=== PATIENT | female | born 1950 | race Caucasian/White ===

== ENCOUNTER 2019-05-28 17:14 | Emergency (ER) | payer MEDICARE, SELFPAY ==
--- NOTE | ~2019-05-28 | XR_ITS ---
EXAMINATION: XR hand RT 2V DATE: 05/28/2019 17:42 INDICATION: Right hand pain. Fall. TECHNIQUE: 3 views of right hand were obtained. COMPARISON: None. FINDINGS: Bone alignment is normal. No fracture. 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 IMPRESSION: 1. No fracture. Reviewed, dictated and finalized at location A. IMPRESSION: 1. No fracture.
--- NOTE | ~2019-05-28 | XR_ITS ---
EXAMINATION: XR humerus RT DATE: 05/28/2019 17:43 INDICATION: Right upper arm pain. Fall. TECHNIQUE: 2 views of right humerus were obtained. COMPARISON: None. FINDINGS: Bone alignment is normal. No fracture. Joint spaces are well maintained. There is a large e lbow joint effusion. IMPRESSION: 1. Large elbow joint effusion. No fracture identified. Reviewed, dictated and finalized at location A.
--- NOTE | ~2019-05-28 | XR_ITS ---
EXAMINATION: XR forearm RT 2V DATE: 05/28/2019 17:42 INDICATION: Right forearm pain. Fall. TECHNIQUE: 2 views of right forearm were obtained. COMPARISON: None. FINDINGS: Bone alignment is normal. No fracture identified. Joint spaces are normal. There is a large elbow joint effusion. IMPRESSION: 1. Large elbow joint effusion. No fracture identified. Reviewed, dictated and finalized at location A.
[2019-05-28 17:24] VITALS: BP 158/81; PULSE 63; RESP 20; TEMP 36.6
--- NOTE | 2019-05-28 17:34 | ED.UPPEXIN ---
HPI - Extremity Injury (Upper) General Chief Complaint: Extremity Injury, Upper Stated Complaint: R ARM INJURY Time Seen by Provider: 05/28/19 17:34 Source: patient Mode of arrival: ambulatory Limitations: no limitations History of Present Illness HPI narrative: Alejandra Stiles is a 68 yo female with a PMH of HTN and high cholesterol, who comes to express care after fall in basement with outstretched R hand. Fell onto R side. Complaining of R elbow, forearm, hand pain, can move arm but is painful. Fall occurred earlier today Related Data Home Medications Medication Instructions Recorded Confirmed atenolol 05/28/19 lovastatin mg 05/28/19 quinapril mg 05/28/19 Allergies Allergy/AdvReac Type Severity Reaction Status Date / Time diclofenac Allergy Intermediate Rash Verified 05/28/19 17:22 Review of Systems Review of Systems: Narrative: CONSTITUTIONAL: Denies fever, chills, sweats. EYES: Denies visual changes, redness, discharge. ENT: Denies rhinorrhea, congestion, sore throat, otalgia. CARDIOVASCULAR: Denies chest pain, palpitations, edema. RESPIRATORY: Denies dyspnea, wheezing, cough GASTROINTESTINAL: Denies abdominal pain, nausea, vomiting, diarrhea. GENITOURINARY: Denies dysuria, hematuria, abnormal discharge SKIN: Denies rash or itching. NEUROLOGIC: Denies numbness, or focal weakness. PSYCHIATRIC: Denies anxiety or depression. R arm pain after fall PMFSH Family History Family History (Updated 05/28/19 @ 18:25 by Ashlie Foster CNP) Other High cholesterol Hypertension Social History Social History (Updated 05/28/19 @ 18:24 by Ashlie Foster CNP) Smoking status: Never smoker Alcohol intake: current Comments At time of signature, I agree with nursing past medical, surgical, social and family history. There is no relevant family history pertinent to the presenting complaint. Exam Narrative: Exam Narrative: GENERAL: This is a well-nourished, well-developed patient, in no apparent distress. HEAD: normocephalic, atraumatic. EYES: PERRL. Sclera clear/white. Vision is grossly intact. EARS: External ears normal, auditory canals clear and without drainage, TMs normal without perforation. Hearing grossly intact. NOSE: External nose normal with no obvious nasal discharge, nares without redness, no rhinorrhea. THROAT: Mucous membranes moist, posterior pharynx clear. NECK: Neck supple, non-tender without lymphadenopathy, masses or thyromegaly. CARDIOVASCULAR: Regular rate and rhythm without murmurs, gallops, or rubs. RESPIRATORY: Clear to auscultation. Breath sounds equal bilaterally. No wheezes, rales, or rhonchi. GASTROINTESTINAL: Abdomen soft, non-tender, nondistended. Bowel sounds are active. No hepato-splenomegaly, or palpable masses. No guarding. SKIN: warm, intact with no suspicious lesions or rash, good texture and turgor. NEURO: awake, alert, and oriented to person, place and time. There were no obvious focal neurologic abnormalities. Steady gait EXTREMITIES: Normal range of motion. No edema. No calf tenderness. Negative Homans sign bilaterally. BACK: Nontender without deformity or crepitance. No flank tenderness. Course Course Emergency Course: Xray of R elbow, forearm, hand-X-ray read as negative- effusiob to R elbow- abbe wrap applied and sling applied Pain meds ordered Vital Signs Vital signs: Vital Signs Temperature 97.9 F 05/28/19 17:24 Pulse Rate 63 05/28/19 17:24 Respiratory Rate 05/28/19 17:24 Blood Pressure 158/81 H 05/28/19 17:24 Temperature 97.9 F 05/28/19 17:24 Pulse Rate 63 05/28/19 17:24 Respiratory Rate 05/28/19 17:24 Blood Pressure 158/81 H 05/28/19 17:24 MDM - Extremity Injury (Upper) Differential Diagnosis Differential diagnosis: Likely sprain and strain of wrist, fracture of wrist and other (fracture of radius) Discharge Plan Discharge Clinical Impression: Effusion of elbow joint, right Patient Disposition: Home, Jennifer
== END 2019-05-28 18:16 | disposition home or self-care (01) ==
PROVIDERS: Emergency Provider Nurse Practitioner; PCP Registered Nurse
DX: M25.421 Effusion, right elbow (principal); E78.00 Pure hypercholesterolemia, unspecified; I10 Essential (primary) hypertension
CPT/HCPCS: 73060; 73090; 73120; 99214; A4565; G0463

== ENCOUNTER → 2022-04-30 08:16 | Outpatient (CLI) | payer MEDICARE, SELFPAY ==
--- NOTE | ~2022-04-30 | CT_ITS ---
EXAMINATION: CT sinus wo con DATE: 04/30/2022 08:30 INDICATION: Chronic pansinusitis. TECHNIQUE: Computed tomography (CT) of the paranasal sinuses was performed without intravenous contra st. Iterative reconstruction technique was employed. The dose-length product was 299.47 mGy-cm. COMPARISON: None FINDINGS: There is mild mucosal thickening in left frontal sinus. There is complete opacification of left lateral recess. There is mild mucosal thickening in the ethmoid sinuses with an anterior predomi nance, left worse than right. The sphenoid sinuses are clear. There is moderate mucosal thickening in left maxillary sinus. There is thickening and sclerosis of the hernandez of left maxillary sinus. Right maxillary sinus is clear. The estimated inserted patent. There is rightward deviation of the nasal se ptum. There are periapical lucencies of a right maxillary molar. There is a small left mastoid effusi on. There are likely changes of ocular lens replacement surgeries. There is anteroposterior elongatio n of the ocular globes. IMPRESSION: 1. Chronic sinusitis. 2. Rightward deviation of the nasal septum. 3. Periapical lucencies of a right maxillary molar. Reviewed, dictated and finalized at location A. DIRECTOR
== END ==
PROVIDERS: PCP Registered Nurse; Visit Provider Otolaryngology
DX: J32.4 Chronic pansinusitis (principal); J34.2 Deviated nasal septum
CPT/HCPCS: 70486

== ENCOUNTER 2022-07-24 10:50 | Emergency (ER) | payer MEDICARE, SELFPAY ==
--- NOTE | ~2022-07-24 | CT_ITS ---
Non-contrast CT scan of the Abdomen and Pelvis Clinical indication: Right flank pain Technique: 2.5 mm axial scans were obtained through the abdomen and pelvis without intravenous or or al contrast. Dose reduction technique was used on this scan by utilizing automated exposure control a nd iterative reconstruction technique. The dose-length product (DLP) was 545.05 mGy-cm. Findings: Images through the lung bases reveal no abnormalities. There is no evidence of renal or ureteral calculi. The kidneys and the ureters are nondilated. The liver, spleen, pancreas, gallbladder, and adrenals appear normal. There are atherosclerotic calci fications of the aorta. There is no evidence of bowel obstruction. There is sigmoid diverticulosis with minimal adjacent infl ammatory stranding. Images through the pelvis were performed. There is no evidence of ascites or lymphadenopathy. Urinary bladder unremarkable. No adnexal mass evident. Impression: Probable minimal acute sigmoid diverticulitis. No abscess or free air. No renal, ureteral, or bladder stone. No hydronephrosis. Reviewed, dictated and finalized at [facility]. Impression: Probable minimal acute sigmoid diverticulitis. No abscess or free air. No renal, ureteral, or bladder stone. No hydronephrosis.
[2022-07-24 10:53] VITALS: BP 177/65; PULSE 55; RESP 16; TEMP 36.4; O2SAT 99
[2022-07-24 12:32] LABS: Appearance Urine Cloudy (Clear); Bacteria Urine None Seen /hpf; Bilirubin Urine Negative (Negative); Blood Urine Negative (Negative); Color Urine Yellow (Yellow); Glucose Urine UA Negative (Negative); Ketones Urine Negative (Negative); Leukocyte Esterase Ur Negative LEU/UL (Negative); Nitrate Urine Negative (Negative); Non Pathogenic Casts 0-2; Protein Urine Negative (Negative); Squamous Epithelial Cell Urine None seen /hpf (Few); Urobilinogen Urine 0.2 mg/dL (<2.0); WBC Urine 0-5 /hpf; pH Urine 6.5 (5.0-9.0)
[2022-07-24 12:40] LABS: Add Urine Microscopic? YES
[2022-07-24 13:02] LABS: Basophils Percent Auto 0.2 % (0.2-1.2); Eosinophils Absolute Auto 0.2 K/mm3 (0-0.3); Eosinophils Percent Auto 3.7 % (0-4.4); Hematocrit 39.8 % (37.0-47.0); Hemoglobin 13.1 g/dL (12.0-15.0); Immature Granulocyte Absolute 0.02 K/mm3 (0.00-0.031); Immature Granulocyte Percent A 0.3 % (0-0.5); Lymphocytes Absolute Auto 1.54 K/mm3 (0.9-3.2); Lymphocytes Percent Auto 26.2 % (18.3-44.2); Mean Corpuscular HGB Conc 32.9 g/dl (32-36); Mean Corpuscular Hemoglobin 31.3 pg (26-34); Mean Platelet Volume 9.2 fl (7.4-10.4); Monocytes Absolute Auto 0.3 K/mm3 (0.1-0.6); Monocytes Percent Auto 5.8 % (2.6-8.5); Neutrophils Absolute Auto 3.8 K/mm3 (1.3-6.7); Neutrophils Percent Auto 63.8 % (45.5-73.1); Platelet Count Result 175 k/mm3 (150-375); Red Blood Count 4.19 M/mm3 (4.2-5.4); Red Cell Distribution Width 12.5 % (11.5-14.5); White Blood Count 5.9 K/mm3 (4.5-10.0)
[2022-07-24 13:13] LABS: Alanine Aminotransferase 19 U/L (6-35); Albumin Level 4.5 g/dL (3.5-5.1); Alkaline Phosphatase 77 U/L (38-126); Anion Gap 6 mmol/L (8-16); Aspartate Amino Transferase 29 U/L (14-36); Bilirubin,Total 0.6 mg/dL (0.2-1.3); Blood Urea Nitrogen 12 mg/dL (7-17); Calcium 8.9 mg/dL (8.4-10.2); Carbon Dioxide 30 mmol/L (22-30); Chloride 103 mmol/L (98-107); Estimated CRCL calculation 53 ml/min; Estimated Glomerular Filt Rate > 60; Glucose 90 mg/dL (65-110); Potassium 4.2 mmol/L (3.4-5.0); Sodium 139 mmol/L (137-145)
--- NOTE | 2022-07-24 13:15 | PC.NURSE ---
Pt to CT scan via w/c.
[2022-07-24 13:40] VITALS: BP 166/85; PULSE 88; RESP 17; O2SAT 99
[2022-07-24 13:47] VITALS: BP 166/85; PULSE 88; RESP 17
[2022-07-24] MEDS: CIPROFLOXACIN 500 MG TAB PO (14:25)
[2022-07-24] MEDS: metroNIDAZOLE 250 MG TABLET 500 MG PO (14:25)
--- NOTE | 2022-07-24 14:25 | ED.GENADULT ---
HPI - General Adult General Chief complaint: Urogenital-Female Stated complaint: R. flank pain Time Seen by Provider: 07/24/22 12:35 History of Present Illness HPI narrative: 71-year-old female presented the ED for evaluation of right flank and lower abdominal pain. Patient states symptoms started on Wednesday and patient had a low-grade fever on Wednesday. Patient reports by the pain began to improve. Patient was still having some minor symptoms today so she presented to the ED for evaluation. Patient does have a prior history of diverticulitis and of kidney stones. Patient felt that the symptoms were similar to her previous kidney stones. Related Data Home Medications Medication Instructions Recorded Confirmed atenolol 25 mg tablet 05/28/19 lovastatin 20 mg tablet mg 05/28/19 quinapril 40 mg tablet mg 05/28/19 Allergies Allergy/AdvReac Type Severity Reaction Status Date / Time diclofenac Allergy Intermediate Rash Verified 07/24/22 13:35 Review of Systems Review of Systems: All systems reviewed & are unremarkable except as noted in HPI and below PMFSH Family History Family History (Updated 05/28/19 @ 18:25 by Ashlie Foster, CARDIOLOGY COORDINATOR) Other High cholesterol Hypertension Social History Social History (Updated 05/28/19 @ 18:24 by Ashlie Foster, CARDIOLOGY COORDINATOR) Smoking status: Never smoker Alcohol intake: current Exam Narrative: APPEARANCE: Well appearing, no pain, no distress, well-nourished. HEAD: normocephalic, atraumatic. EYES: PERRLA/EOMI, conjunctivae clear. NECK: Supple. No adenopathy, no masses. RESPIRATORY: Airway patent, respirations nonlabored. Clear to auscultation bilaterally, no rales, rhonchi, wheezing. CARDIOVASCULAR: Regular rate and rhythm without murmurs rubs or gallops. ABDOMINAL: Soft, nontender, nondistended, normal bowel sounds MUSCULOSKELETAL: Moves all extremities. Strength/ROM intact, No edema, No calf tenderness. NEURO: Alert. Cranial nerves II through XII intact. Grossly intact SKIN: Warm, dry. Normal Color Course Course Emergency Course: 71-year-old female with lower abdominal pain. Patient was afebrile with no leukocytosis patient hemoglobin is stable. Patient's CMP has no significant abnormalities. UA did show evidence of hematuria. CT scan was ordered to evaluate for possible kidney stone. CT did show evidence of diverticulitis. Patient has had diverticulitis previously and has had a reaction to Augmentin. Patient was started on Cipro Flagyl. Patient does have follow-up previously with GI. Patient was updated on the results of the imaging and treatment plan. Patient was also encouraged of close follow-up with urology due to the hematuria. Patient's hematuria and symptoms may be due to a passed kidney stone but due to the CT scan showing evidence of diverticulitis patient is being treated for diverticulitis. Vital Signs Vital signs: Vital Signs Temperature 97.6 F 07/24/22 10:53 Pulse Rate 55 L 07/24/22 10:53 Respiratory Rate 16 07/24/22 10:53 Blood Pressure 177/65 H 07/24/22 10:53 Pulse Oximetry 99 07/24/22 10:53 Oxygen Delivery Room Air 07/24/22 10:53 Temperature 97.6 F 07/24/22 10:53 Pulse Rate 88 07/24/22 13:47 Respiratory Rate 17 07/24/22 13:47 Blood Pressure 166/85 H 07/24/22 13:47 Pulse Oximetry 99 07/24/22 13:40 Oxygen Delivery Room Air 07/24/22 10:53 Medical Decision Making Differential Diagnosis Differential Diagnosis: Diverticulitis, urinary tract infection, ureteral calculi, colitis, appendicitis Vital Signs Vital Signs: Vital Signs Temperature 97.6 F 07/24/22 10:53 Pulse Rate 55 L 07/24/22 10:53 Respiratory Rate 16 07/24/22 10:53 Blood Pressure 177/65 H 07/24/22 10:53 Pulse Oximetry 99 07/24/22 10:53 Oxygen Delivery Room Air 07/24/22 10:53 Temperature 97.6 F 07/24/22 10:53 Pulse Rate 88 07/24/22 13:47 Respiratory Rate 17 07/24/22 13:47 Blood Pres
== END 2022-07-24 14:34 | disposition home or self-care (01) ==
PROVIDERS: Emergency Medicine; Emergency Provider Emergency Medicine; PCP Registered Nurse
DX: K57.32 Diverticulitis of large intestine without perforation or abscess without bleeding (principal); R31.9 Hematuria, unspecified
CPT/HCPCS: 36415; 74176; 80053; 81001; 85025; 99284; A9270